=== PATIENT | female | born 2000 | race Two or more races ===

== ENCOUNTER 2019-08-19 21:05 | Emergency (ER) | payer OTHER ==
--- NOTE | 2019-08-19 22:30 | ER Document Report ---
ED Medical Screen (RME) - General Chief Complaint: Seizure Stated Complaint: POSSIBLE SEIZURE Time Seen by Provider: 08/19/19 22:25 Mode of Arrival: Ambulatory Information source: Patient Notes: 19-year-old female presented to ED for complaint of syncopal episode today. She was standing at the stairway and she cut herself on a steak knife. states she always passes out at the site of blood. He states he figured she was going to pass out so she leaned up against the stairs closed her eyes. helped her to the ground. He states that after she closed her eyes she woke quite back up, then she closes her eyes again her eyes rolled up in her head and she had some tremors. He states that lasted 20 to 30 seconds and then she was able to wake back up again. He states she did not wet himself or have a incontinent bowel movement. He states that the patient did not remember any of the occurrence except for cutting herself and leaning against the stairs. Patient has no past medical history does not drink smoke or use any drugs. I have greeted and performed a rapid initial assessment of this patient. A comprehensive ED assessment and evaluation of the patient, analysis of test results and completion of medical decision making process will be conducted by an additional ED providers. TRAVEL OUTSIDE OF THE [place] IN LAST 30 DAYS: No - Related Data Home Medications: BCP Physical Exam - Vital signs Vitals: Temp Pulse Resp BP Pulse Ox 97.7 F 87 16 121/75 95 08/19/19 21:34 08/19/19 21:34 08/19/19 21:34 08/19/19 21:34 08/19/19 21:34 Course - Vital Signs Vital signs: Temp Pulse Resp BP Pulse Ox 97.7 F 87 16 121/75 95 08/19/19 21:34 08/19/19 21:34 08/19/19 21:34 08/19/19 21:34 08/19/19 21:34
[2019-08-19 23:00] LABS: ABSOLUTE LYMPHOCYTES (AUTO) 1.8 10^3/uL (0.5-4.7); ABSOLUTE MONOCYTES (AUTO) 0.5 10^3/uL (0.1-1.4); APPEARANCE,URINE SLIGHTLY-CLOUDY; BASOPHILS % (AUTO) 0.2 % (0-2); BILIRUBIN,URINE NEGATIVE (NEGATIVE); COLOR,URINE YELLOW; EOSINOPHILS % (AUTO) 0.6 % (0-6); GLUCOSE, URINE NEGATIVE (NEGATIVE); HEMATOCRIT 40.4 % (36.0-47.0); HEMOGLOBIN 13.8 g/dL (12.0-15.5); KETONES,URINE NEGATIVE (NEGATIVE); MEAN CORPUSCULAR HEMOGLOBIN 30.5 pg (27.0-33.4); MEAN CORPUSCULAR HGB CONC 34.1 g/dL (32.0-36.0); MEAN CORPUSCULAR VOLUME 89 fl (80-97); MONOCYTES % (AUTO) 9.7 % (3-13); PLATELET COUNT 321 10^3/uL (150-450); PROTEIN,URINE NEGATIVE (NEGATIVE); RED BLOOD COUNT 4.52 10^6/uL (3.72-5.28); SEGMENTED NEUTROPHILS % (AUTO) 56.5 % (42-78); TOTAL CELLS COUNTED % (AUTO) 100 %; URINE SPECIFIC GRAVITY 1.017; UROBILINOGEN,URINE NEGATIVE mg/dL (<2.0); WHITE BLOOD COUNT 5.4 10^3/uL (4.0-10.5)
[2019-08-19 23:10] LABS: ALBUMIN 4.4 g/dL (3.5-5.0); ALKALINE PHOSPHATASE 61 U/L (38-126); ANION GAP 7 (5-19); ASPARTATE AMINO TRANSFERASE 26 U/L (14-36); BILIRUBIN,TOTAL 0.3 mg/dL (0.2-1.3); BLOOD UREA NITROGEN 12 mg/dL (7-20); CALCIUM 9.4 mg/dL (8.4-10.2); CARBON DIOXIDE 28 mmol/L (22-30); CHLORIDE 104 mmol/L (98-107); GLUCOSE 93 mg/dL (75-110); POTASSIUM 4.2 mmol/L (3.6-5.0); TOTAL PROTEIN 7.4 g/dL (6.3-8.2)
[2019-08-19 23:18] LABS: URINE AMPHETAMINES SCREEN NEGATIVE; URINE BARBITURATES SCREEN NEGATIVE; URINE BENZODIAZEPINES SCREEN NEGATIVE; URINE COCAINE SCREEN NEGATIVE; URINE MARIJUANA (THC) SCREEN NEGATIVE; URINE METHADONE SCREEN NEGATIVE; URINE PHENCYCLIDINE SCREEN NEGATIVE
--- NOTE | 2019-08-20 01:10 | EKG REPORT ---
SEVERITY:- NORMAL ECG - SINUS RHYTHM : Confirmed by: Analy Carr MD 20-Aug-2019 01:09:48
[2019-08-20 03:14] VITALS: BP 110/62
--- NOTE | 2019-08-20 07:04 | ER Document Report ---
Entered by TRINH HALL SCRIBE 08/20/19 0228 Acting as scribe for:SUZY BARKER IV, MD ED Syncope and Near Syncope - General Chief Complaint: Fainting Stated Complaint: POSSIBLE SEIZURE Time Seen by Provider: 08/19/19 22:25 Primary Care Provider: ALEJANDRO RIVAS DO [Primary Care Provider] - Follow up as needed Mode of Arrival: Ambulatory Information source: Patient Notes: This 19 year old female patient with no significant past medical history presents to the ED today with complaints of a syncopal episode that occurred prior to arrival. Patient states that she cut her left thumb with a steak knife while she was standing at the stairway. at bedside states that he figured she was going to pass out because she has done so in the past at the sight of blood. states that the patient leaned up against the stairs and closed her eyes while he helped her to the ground. He states that after she closed her eyes, she woke up for a little bit, then she closed her eyes again. He reports that the patient's eyes rolled up in her head and that she had some tremors. He states that the episode lasted x20-30 seconds and then she was able to wake back up again. denies loss of bowel or incontinence and states that the patient did not remember anything besides cutting herself and leaning against the stairs. Patient does report a slight headache post syncopal episode, but states that she feels better now and that the cut is fine. TRAVEL OUTSIDE OF THE [place] IN LAST 30 DAYS: No - Related Data Home Medications: BCP Past Medical History - General Information source: Patient - Social History Smoking Status: Never Smoker Cigarette use (# per day): No Chew tobacco use (# tins/day): No Smoking Education Provided: No Frequency of alcohol use: None Drug Abuse: None Family History: Reviewed & Not Pertinent Patient has suicidal ideation: No Patient has homicidal ideation: No Review of Systems - Review of Systems Constitutional: No symptoms reported EENT: No symptoms reported Cardiovascular: See HPI, Syncope Respiratory: No symptoms reported Gastrointestinal: See HPI. denies: Fecal incontinence Genitourinary: See HPI. denies: Incontinence Female Genitourinary: No symptoms reported Musculoskeletal: No symptoms reported Skin: See HPI, Other - Left thumb laceration Hematologic/Lymphatic: No symptoms reported Neurological/Psychological: See HPI, Headaches Physical Exam - Vital signs Vitals: Temp Pulse Resp BP Pulse Ox 97.7 F 87 16 121/75 95 08/19/19 21:34 08/19/19 21:34 08/19/19 21:34 08/19/19 21:34 08/19/19 21:34 Interpretation: Normal - General General appearance: Alert - HEENT Head: Normocephalic, Atraumatic Eyes: Normal Pupils: PERRL - Respiratory Respiratory status: No respiratory distress Chest status: Nontender Breath sounds: Normal Chest palpation: Normal - Cardiovascular Rhythm: Regular Heart sounds: Normal auscultation Murmur: No Friction rub: No Gallop: None auscultated - Abdominal Inspection: Normal Distension: No distension Bowel sounds: Normal Tenderness: Nontender - Abdomen soft Organomegaly: No organomegaly - Back Back: Normal, Nontender - Extremities General upper extremity: Normal inspection General lower extremity: Normal inspection Hand: Laceration - 0.25 cm linear laceration to left thumb. Laceration is hemostatic, non-gaping. - Neurological Neuro grossly intact: Yes - Psychological Associated symptoms: Normal affect, Normal mood - Skin Skin Temperature: Warm Skin Moisture: Dry Skin Color: Normal Course - Re-evaluation Re-evalutation: 08/20/19 02:50 Results of ED MSE discussed with patient. All questions were answered prior to discharge. Emergency signs and symptoms, reasons to return to the emergency department discussed with patient. - Vital Signs Vital signs: Temp Pulse Resp BP Pulse Ox 98.6 F 75 15 110/62 100 08/20/19 03:13 08/20/19 03:13 08/20/19 03:13 08/20/19 03:13 08/20/19 03:13 - Laboratory Result Diagrams: 08/19/19 22:30 08/19/19 22:30 Laboratory results interpreted by me: 08/19/19 22:30 Urine Blood SMALL H Discharge - Discharge Clinical Impression: Fainting spell Laceration of left thumb without complication Qualifiers: Encounter type: initial encounter Qualified Code(s): S61.012A - Laceration without foreign body of left thumb without damage to nail, initial encounter Condition: Good Disposition: HOME, SELF-CARE Instructions: Antibiotic Ointment Protection ([facility]), Laceration Care ([facility]) Additional Instructions: Return to the Emergency Department without delay if any worse. HOME CARE INSTRUCTIONS & INFORMATION: Thank you for choosing us for your medical needs. We hope you're satisfied with the care you received. After you leave, you must properly care for your problem and, at the same time, observe its progress. Any condition can change. Some illnesses can change rapidly over hours or days. If your condition worsens, return to the Emergency Department or see your physician promptly. ABOUT YOUR X-RAYS AND EKG'S: If you had an EKG or X-rays taken, they have been read by the Emergency Physician. The X-rays and EKG's will also be read by a Radiologist or Director Selection And Administration within 24 hours. If discrepancies are noted, you will be notified by telephone. Please be certain the ED has a correct telephone number & address where you can be reached. Also, realize that some fractures or abnormalities do not show up on initial X-rays. If your symptoms continue, see your physician. ABOUT YOUR LABORATORY TEST: If you had laboratory tests, the results have been reviewed by the Emergency Physician. Some test results (for example cultures) may not be available for several days. You will be contacted if any test result shows you need additional treatment. Please be certain the ED has a correct telephone number and address where you can be reached. ABOUT YOUR MEDICATIONS: You will receive instructions on how to take your medicine on the prescription label you receive. Additional information may be provided by the Pharmacy. If you have questions afterwards, call the ED for clarification or further instructions. Some prescribed medications may cause drowsiness. Do not perform tasks such as driving a car or operating machinery without consulting your Pharmacist. If you feel you need a refill of pain medication, your condition will need re-evaluation. Please do not call for a refill of any medication. ABOUT YOUR SIGNATURE: Signature of this document acknowledges to followin. Understanding that you received emergency treatment and that you may be released before al medical problems are known or treated. Please be certain the ED has a correct phone number & address where you can be reached. 2. Acknowledgement that you will arrange for follow-up care as recommended. 3. Authorization for the Emergency Physician to provide information to your follow-up Physician in order to maximize your care. AT ANY TIME, IF YOUR SYMPTOMS CHANGE SIGNIFICANTLY OR WORSEN OR YOU DEVELOP NEW SYMPTOMS, RETURN TO THE EMERGENCY DEPARTMENT IMMEDIATELY FOR RE-EVALUATION. OUR GOAL IS TO PROVIDE EXCELLENT MEDICAL CARE! WE HOPE THAT WE HAVE MET YOUR EXPECTATIONS DURING YOUR EMERGENCY DEPARTMENT VISIT AND THAT YOU FEEL YOU HAVE RECEIVED EXCELLENT CARE! Fainting Your evaluation has resulted in a diagnosis of a fainting spell (syncope). Fainting results when the blood pressure falls suddenly due to emotional distress, pain, dehydration, bleeding, or medication effects. Fainting is usually NOT due to a health problem in younger people. Older persons often faint due to a medical condition. Your exam has revealed no signs of a serious problem as a cause for your fainting. Usually, no further tests are required. However, if further workup has been recommended, it's important that you follow up as instructed. Should you feel lightheaded or "about to faint," you should sit or lie down as quickly as possible. The episode will usually pass. Additional faints or near-faints will require further evaluation to determine if there's a treatable cause. Call the doctor at once if you develop shortness of breath, constant faintness, severe weakness, chest pain, black or tarry stool, or any other new or unusual symptoms. Referrals: ALEJANDRO RIVAS, DO [Primary Care Provider] - Follow up as needed I personally performed the services described in the documentation, reviewed and edited the documentation which was dictated to the scribe in my presence, and it accurately records my words and actions.
== END 2019-08-20 03:14 | disposition home or self-care (01) ==
LOC: ER 21:05
DX: R55 Syncope and collapse (principal); S61.012A Laceration without foreign body of left thumb without damage to nail, initial encounter; W26.0XXA Contact with knife, initial encounter
CPT/HCPCS: 36415; 80053; 80307; 81001; 84703; 85025; 93005; 93010; 99284